=== PATIENT | male | born 1950 | race Caucasian/White ===

== ENCOUNTER 2022-07-16 21:37 | Emergency (ER) | payer MEDICARE, OTHER ==
[~2022-07-16] VITALS: Ht 177.8 cm; Wt 77.1 kg
[2022-07-16 22:20] VITALS: BP 118/70
--- NOTE | 2022-07-16 22:20 | NUR ---
[id number] FROM [facility] OF LEFT INGUINAL PAIN SCALE OF 7/10. PATIENT IS AAOX4. ABLE TO MAKE NEEDS KNOWN. PER PATIENT, ITS THE 1ST TIME HE HAD THIS PAIN. HAD 5 SHOTS OF COVID VACCINE. ATTACHED TO MONITOR. VITALS CHECKED.
--- NOTE | 2022-07-16 23:15 | NUR ---
EMILY OF SCROTUM DONE AT BEDSIDE
[2022-07-17 00:57] LABS: BILIRUBIN,URINE NEGATIVE (NEGATIVE); COLOR,URINE YELLOW (YELLOW); LEUKOCYTE ESTERASE ,URINE NEGATIVE (NEGATIVE); NITRITE, URINE NEGATIVE (NEGATIVE); PROTEIN,URINE NEGATIVE (NEGATIVE); UGLUCOSE NEGATIVE (NEGATIVE); UROBILINOGEN,URINE 0.2 EU/dL (0.2)
--- NOTE | 2022-07-17 01:31 | NUR ---
Patient discharged to home in stable condition. Written and verbal after care instructions given. Patient verbalizes understanding of instruction.
[2022-07-17 07:22] LABS: RBC,URINE NONE SEEN /HPF (0-2)
[2022-07-17 07:23] LABS: BACTERIA,URINE Few /HPF (None Seen); SQUAMOUS EPITHELIAL CELL,UR 0-2 /HPF (None Seen)
== END 2022-07-17 01:32 | disposition home or self-care (01) ==
LOC: ER 21:42
DX: N43.3 Hydrocele, unspecified (principal); N50.3 Cyst of epididymis
CPT/HCPCS: 76870-TC; 81001

== ENCOUNTER 2022-08-09 02:39 | Emergency (ER) | payer MEDICARE, OTHER ==
[~2022-08-09] VITALS: Ht 177.8 cm; Wt 79.4 kg
--- NOTE | 2022-08-09 03:30 | NUR ---
[id number] FROM [place] C/O DIARRHEA X 1 DAY. AWAKE AND ALERT BREATHING UNLABORED. V/S WNL.
--- NOTE | 2022-08-09 03:31 | NUR ---
PHLEB AT BEDSIDE
[2022-08-09 03:51] LABS: BASOPHILS % (AUTO) 0.2 % (0.0-2.0); EOSINOPHILS % (AUTO) 6.5 % (0.0-6.0); HEMATOCRIT 38 % (39-51); HEMOGLOBIN 12.7 g/dL (13.5-17.5); LYMPHOCYTES # (AUTO) 1.6 K/uL (0.8-4.8); LYMPHOCYTES % (AUTO) 34.2 % (20.0-44.0); MEAN CORPUSCULAR HGB CONC 34 g/dl (31.0-36.0); MEAN CORPUSCULAR VOLUME 104 fL (80-96); MONOCYTES # (AUTO) 0.6 K/uL (0.1-1.30); MONOCYTES % (AUTO) 12.2 % (2.0-12.0); NEUTROPHILS # (AUTO) 2.2 K/uL (1.8-8.9); NEUTROPHILS % (AUTO) 46.9 % (43.0-81.0); PLATELET COUNT (AUTO) 111 K/uL (150-450); RED BLOOD CELL COUNT(AUTO) 3.65 MIL/uL (4.5-6.0); WHITE BLOOD COUNT (AUTO) 4.8 K/uL (4.3-11.0)
[2022-08-09 04:09] LABS: CALCIUM, SERUM 7.9 mg/dL (8.5-10.1); CREATININE 1.3 mg/dL (0.6-1.3); POTASSIUM 3.4 mmol/L (3.5-5.1)
[2022-08-09 04:16] LABS: BILIRUBIN,DIRECT 0.1 mg/dL (0.0-0.2); BILIRUBIN,TOTAL 0.3 mg/dL (0.2-1.0); TOTAL PROTEIN, SERUM 6.6 g/dL (6.4-8.2)
--- NOTE | 2022-08-09 04:40 | NUR ---
Sy sheldon in ED - 08/09/22 at 0633 by LION Patient discharged to home in stable condition. Written and verbal after care instructions given. Patient verbalizes understanding of instruction.
--- NOTE | 2022-08-09 05:07 | NUR ---
COVID SWAB SENT TO LAB
[2022-08-09 07:54] LABS: BILIRUBIN,URINE NEGATIVE (NEGATIVE); COLOR,URINE YELLOW (YELLOW); LEUKOCYTE ESTERASE ,URINE NEGATIVE (NEGATIVE); NITRITE, URINE NEGATIVE (NEGATIVE); PH,URINE 5.5 (5.0-8.0); PROTEIN,URINE TRACE mg/dl (NEGATIVE); UGLUCOSE NEGATIVE (NEGATIVE); UROBILINOGEN,URINE 0.2 EU/dL (0.2)
[2022-08-09 08:06] LABS: BACTERIA,URINE None seen /HPF (None Seen); RBC,URINE 21-50 /HPF (0-2); SQUAMOUS EPITHELIAL CELL,UR Rare /HPF (None Seen); WBC,URINE 0-2 /HPF (0-3)
--- NOTE | 2022-08-09 09:48 | NUR ---
CLINICALS, FAC[facility]HEET [facility]
[2022-08-09] MEDS ORDERED: POTASSIUM CHLORIDE 20 MEQ TAB.PRT.SR PO ONE ×3 (12:30→16:30)
[2022-08-09 14:17] LABS: ALCOHOL, BLOOD < 3 mg/dL (0-0)
[2022-08-09 14:24] LABS: ACETAMINOPHEN < 10 ug/ml (10-30)
--- NOTE | 2022-08-09 15:08 | NUR ---
PT RESTING COMFORTABLE IN BED, ABLE TO MAKE NEEDS KNOWN. VITALS ARE WITHIN NORMAL LIMITS.
[2022-08-09 17:57] VITALS: BP 136/85
--- NOTE | 2022-08-09 18:20 | NUR ---
ACCEPTED AT [facility] UNDER DR ODOM NUMBER FOR REPORT [phone] ED TO ARRANGE TRANSPORT.
--- NOTE | 2022-08-09 18:26 | NUR ---
[facility] CALLED FOR TRANSPORT ETA 90 MINS
--- NOTE | 2022-08-09 20:30 | NUR ---
attempeted to give report to socal. no naswer. left a message
--- NOTE | 2022-08-09 20:41 | NUR ---
[facility]
== END 2022-08-09 20:41 ==
LOC: ER 02:40
DX: R19.7 Diarrhea, unspecified (principal); R45.851 Suicidal ideations; Z20.822 Contact with and (suspected) exposure to COVID-19
CPT/HCPCS: 36415; 80048-TC; 80076-TC; 81001; 82962-TC; 83690-TC; 85025-TC; C9803; G0480